=== PATIENT | male | born 1995 | race Two or more races ===

== ENCOUNTER 2024-09-02 19:54 | Emergency (ER) | payer OTHER ==
[~2024-09-02] VITALS: Ht 182.9 cm; Wt 79.4 kg
[2024-09-02] MEDS ORDERED: IPRATROPIUM/ALBUTEROL SULFATE 3 ML AMPUL.NEB IH SCH (20:30)
[2024-09-02] MEDS ORDERED: GUAIFENESIN/DEXTROMETHORPHAN 10ML BLIST.PACK PO ONE ×2 (20:30→20:50)
[2024-09-02] MEDS ORDERED: METHYLPREDNISOLONE SOD SUCC 125 MG VIAL IV ONE (20:30)
[2024-09-02] MEDS ORDERED: METHYLPREDNISOLONE SOD SUCC 125 MG VIAL ONE (20:50)
[2024-09-02] MEDS ORDERED: IPRATROPIUM/ALBUTEROL SULFATE 3 ML AMPUL.NEB IH ONE (21:05)
[2024-09-02 21:13] LABS: HEMATOCRIT 46.2 % (39.0-48.0); HEMOGLOBIN 15.8 g/dL (13-16.00); MEAN CELL VOLUME 92.3 fL (80.0-100.00); MEAN CORPUSCULAR HEMOGLOBIN 31.5 pg (27.00-32.0); MEAN CORPUSCULAR HGB CONC 34.2 g/dl (32.0-36.0); PLATELET COUNT 265 K/uL (150-450); RED BLOOD COUNT 5.01 M/uL (4.00-6.00); RED CELL DISTRIBUTION WIDTH 12.4 % (11.5-14.5)
[2024-09-02] MEDS ORDERED: IPRATROPIU0.2 MG/1 M IH (21:51)
[2024-09-02] MEDS ORDERED: SINGULAIR10 MG PO (21:51)
[2024-09-02] MEDS ORDERED: ALBUTEROL1.25 MG/3 IH (21:51)
[2024-09-02] MEDS ORDERED: MEDROLPACK PO (21:51)
[2024-09-02] MEDS ORDERED: QC TUSSIN DM L118 ML PO (21:51)
[2024-09-02] MEDS ORDERED: ZITHROMAX500 MG PO (22:08)
== END 2024-09-02 22:11 ==
LOC: ER 19:56
PROVIDERS: Preventive Medicine Public Health & General Preventive Medicine
DX: J00 Acute nasopharyngitis [common cold] (principal); Z20.822 Contact with and (suspected) exposure to COVID-19; Z88.6 Allergy status to analgesic agent; Z91.013 Allergy to seafood